=== PATIENT | male | born 1965 | race Caucasian/White ===

== ENCOUNTER 2022-01-27 00:59 | Emergency (ER) | payer OTHER, SELFPAY ==
[~2022-01-27] VITALS: Ht 177.8 cm; Wt 113.4 kg
[2022-01-27 00:59] VITALS: BP_SYST 147
--- NOTE | 2022-01-27 01:11 | NUR ---
56 YR OLD [place] SPEAKING MALE WITH COMPLAINT OF CHEST PAIN 9 WITH SOB FOR TWO HOURS. PT IS AOX4, RECIEVED 162 ASA IN ROUTE TO FACILITY. PT HAD 18 G IV PLACED IN LEFT FOREARM IN ROUTE AND PLACED ON NASAL CANNULA OXYGEN AT 2LITERS.
[2022-01-27] MEDS ORDERED: ONDANSETRON HCL 4 MG/2 ML VIAL IVP ONE (01:15)
[2022-01-27] MEDS ORDERED: MORPHINE 2 MG/ML INJ. SYRINGE IVP ONE ×2 (01:15→06:15)
[2022-01-27] MEDS ORDERED: ASPIRIN 325 MG TABLET PO ONE (01:15)
[2022-01-27 02:08] LABS: BASOPHILS # (AUTO) 0.1 K/uL (0.0-0.2); BASOPHILS % (AUTO) 0.7 % (0.0-2.0); EOSINOPHILS # (AUTO) 0.4 K/uL (0.0-0.4); EOSINOPHILS % (AUTO) 3.4 % (0.0-4.0); HEMATOCRIT 30.8 % (36-54); HEMOGLOBIN 10.4 g/dL (14.0-18.0); LYMPHOCYTES # (AUTO) 2.1 K/uL (1.0-5.5); LYMPHOCYTES % (AUTO) 17.5 % (20.5-51.5); MEAN CORPUSCULAR HEMOGLOBIN 32 pg (27-31); MEAN CORPUSCULAR HGB CONC 34 % (32-36); MEAN CORPUSCULAR VOLUME 94 fL (79.0-98.0); MONOCYTES # (AUTO) 0.6 K/uL (0.0-1.0); MONOCYTES % (AUTO) 5.3 % (1.7-9.3); NEUTROPHILS # (AUTO) 8.7 K/uL (1.8-7.7); NEUTROPHILS % (AUTO) 73.1 % (40.0-70.0); PLATELET COUNT (AUTO) 217 K/uL (130-430); RED BLOOD CELL COUNT(AUTO) 3.29 MIL/uL (4.2-6.2); RED CELL DISTRIBUTION WIDTH 13.8 % (9.0-15.0); WHITE BLOOD COUNT (AUTO) 11.9 K/uL (4.8-10.8)
[2022-01-27 02:24] LABS: ANION GAP 11 (5-15); CALCIUM 8.1 mg/dL (8.4-11.0); CHLORIDE 105 mmol/L (98-107); CREATININE 5.58 mg/dL (0.55-1.30); GLUCOSE 277 mg/dL (70-99); POTASSIUM 4.6 mmol/L (3.5-5.1); SODIUM SERUM 143 mmol/L (136-145); UREA NITROGEN, BLOOD 70 mg/dL (8-21)
[2022-01-27 02:30] LABS: GFR AFRICAN AMERICAN 14 mL/min (>90)
[2022-01-27 02:33] LABS: ALANINE AMINOTRANSFERASE 23 U/L (12-78); ALBUMIN 3.3 g/dL (3.4-4.8); ASPARTATE AMINOTRANSFERASE 27 U/L (10-37); TOTAL BILIRUBIN < 0.1 mg/dL (0.0-1.0)
--- NOTE | 2022-01-27 03:10 | NUR ---
PT IN BED RESTING WITH EYES CLOSED, AROUSABLE TO TACTILE TOUCH. PT REPORTS MILD CHEST PAIN. PT IN HIGH JEAN BAPTISTE'S POSITION, NO ACUTE DISTRESS. WILL MONITOR NEEDED
[2022-01-27] MEDS ORDERED: *HEPARIN PER PHARMACY XX ONE (03:30)
--- NOTE | 2022-01-27 03:55 | NUR ---
BELLA FARNSWORTH SWAB OBTAINED AND SENT TO LAB
[2022-01-27 05:09] LABS: INR 0.9 (0.80-1.20); PROTHROMBIN TIME 9.4 SECS (9.5-12.5)
--- NOTE | 2022-01-27 05:16 | NUR ---
LABWORK PTT PENDING, UNABLE TO ADMINISTER ORDERED MEDICATION PER PROTOCOL. CHARGE NURSE AWARE. PT IN BED RESTING EASILY AROUSABLE. PT VITAL SIGNS STABLE. WILL MOITOR CLOSELY NEEDED
[2022-01-27] MEDS ORDERED: HEPARIN 25,000 UNITS/D5W 250ML 250 ML IV PRN (05:45)
[2022-01-27] MEDS ORDERED: *HEPARIN PER PHARMACY XX PRN (05:45)
[2022-01-27] MEDS ORDERED: HEPARIN SODIUM,PORCINE 3000 UNITS/0.6 ML BOLUS IVP ONE (05:45)
[2022-01-27] MEDS ORDERED: HEPARIN 25,000 UNITS in 250 ML PREMIX IV PRN (05:45)
[2022-01-27] MEDS ORDERED: HEPARIN SODIUM,PORCINE 3000 UNITS/0.6 ML BOLUS IVP PRN (05:45)
[2022-01-27] MEDS ORDERED: HEPARIN SODIUM,PORCINE 2000 UNITS/0.4 ML BOLUS IVP PRN (05:45)
--- NOTE | 2022-01-27 05:55 | NUR ---
UNABLE TO OBTAINE HEPARIN FOR TITRATION, CONTACTED PHARMACY THREE TIMES TO NO AVAIL FOR INFORMATION TO OBTAIN ADMINISTRATION DOSAGE. PT PENDING TRANSFER TO [facility].
--- NOTE | 2022-01-27 06:22 | NUR ---
PT ADMINISTERED 3000 UNITS OF HEPARIN (0.6 ML) IVP, THANH FRANCO VERIFIED FOR CLARIFICATION. PT IN BED RESTING, PENDING TRANSFER TO [facility]
[2022-01-27 06:48] VITALS: BP_SYST 138
--- NOTE | 2022-01-27 07:00 | NUR ---
REPORT GIVEN TO JENNIFER FRANCO FOR PT TO BE TRANSFERRED TO [facility] [phone] PT TO BE ADMITTED TO ICU 209 ACCEPTING MD IS Omari THORNE. PT TRANSPORTED WITH [facility] 800 COPPIES OF CHEST XRAY AND SUMMARY REPORT PROVIDED TO TWO DATA MANAGER AND JOAN THOMPSON. PT TRANSFERRED WITH ALL BELONGINGS IN STABLE CONDITION. ALL QUESTIONS ANSWERED
== END 2022-01-27 07:01 | disposition short-term general hospital (02) ==
LOC: SED 00:59
DX: I21.4 Non-ST elevation (NSTEMI) myocardial infarction (principal); N17.9 Acute kidney failure, unspecified; Z88.8 Allergy status to other drugs, medicaments and biological substances; Z20.822 Contact with and (suspected) exposure to COVID-19
CPT/HCPCS: 36415; 71045; 80053; 83880; 84484; 85025; 85610; 85730; 87426; 93005; 96374; 96375; 99291; J1644; J2270; J2405